=== PATIENT | female | born 1970 | race Caucasian/White ===

== ENCOUNTER 2023-05-01 13:45 | Outpatient (CLI) | payer OTHER | END 2023-05-01 13:46 | disposition home or self-care (01) | LOC: BICRAD 13:45 | PROVIDERS: ATTEND Family Medicine | DX: S89.91XA Unspecified injury of right lower leg, initial encounter (principal) ==

== ENCOUNTER 2023-05-23 12:44 | Outpatient (CLI) | payer OTHER | END 2023-05-23 12:45 | disposition home or self-care (01) | LOC: SCSMRI 12:44 | PROVIDERS: ATTEND Family Medicine | DX: S80.01XD Contusion of right knee, subsequent encounter (principal); M94.8X6 Other specified disorders of cartilage, lower leg; M71.21 Synovial cyst of popliteal space [Baker], right knee ==

== ENCOUNTER 2023-06-26 19:30 | Emergency (ER) | payer OTHER ==
[2023-06-26] MEDS ORDERED: predniSONE 20 MG TAB ONE (22:47)
[2023-06-26] MEDS ORDERED: Ketorolac Tromethamine 30 MG (1 mL) VIAL ONE (22:48)
== END 2023-06-27 00:28 | disposition home or self-care (01) ==
LOC: ERS 19:30
DX: M71.21 Synovial cyst of popliteal space [Baker], right knee (principal); M25.761 Osteophyte, right knee; M25.561 Pain in right knee; F17.290 Nicotine dependence, other tobacco product, uncomplicated
CPT/HCPCS: 96372; J1885; J7512